=== PATIENT | male | born 2005 | race Two or more races ===

== ENCOUNTER 2024-03-24 23:17 | Emergency (ER) | payer OTHER ==
[~2024-03-24] VITALS: Ht 165.1 cm; Wt 63.5 kg
[2024-03-24] MEDS ORDERED: ACETAMINOPHEN ES 500 MG TABLET ONE (23:48)
[2024-03-24] MEDS: ACETAMINOPHEN ES 500 MG TABLET PO ONE (23:52)
[2024-03-25 01:13] VITALS: BP 133/65; TEMP 98.8; O2SAT 97
== END 2024-03-25 01:14 ==
LOC: ER 23:38
DX: S09.90XA Unspecified injury of head, initial encounter (principal); Z02.89 Encounter for other administrative examinations; Y08.89XA Assault by other specified means, initial encounter; Y93.89 Activity, other specified; Y92.89 Other specified places as the place of occurrence of the external cause; Y99.8 Other external cause status
CPT/HCPCS: 70450-TC